=== PATIENT | male | born 1985 | race Caucasian/White ===

== ENCOUNTER 2016-11-26 11:04 | Emergency (ER) | payer BC, OTHER ==
[~2016-11-26] VITALS: Wt 85.0 kg
[~2016-11-26 11:04] MED LIST: ROSU5TAB5 PO
[2016-11-26 13:01] LABS: URINE BLOOD (Dip) POC 1+ (NEGATIVE)
--- NOTE | 2016-11-26 13:59 | RADRPT ---
PROCEDURE: Scrotal ultrasound CLINICAL INDICATION: Bilateral scrotal pain TECHNIQUE: Scrotal ultrasound was performed in multiple obliquities. Schwartz scale and color imaging was performed. Images were reviewed on high resolution PACS monitors. COMPARISON: None available FINDINGS: The testes are normal in size and echogenicity. There is normal flow to the bilateral testes. No t esticular mass or cyst is identified. No hydroceles are seen. There is mild nonspecific heterog eneity of the right epididymis, likely within normal limits for this patient. The epididymides are otherwise within normal limits. There is no evidence for a varicocele. IMPRESSION: 1. Mild heterogeneity of the right epididymis which may be artifactual. Recommend follow-up as cli nically indicated. 2. Otherwise unremarkable scrotal ultrasound. RPTAT: KK .Vinod Salter MD, MD Date Time Electronically viewed and signed by .Vinod Salter MD, MD on 11/26/2016 13:59 .B/
[2016-11-26] MEDS ORDERED: DOXY100T20 PO (14:04)
[2016-11-26] MEDS ORDERED: IBUP-1542 PO (14:05)
--- NOTE | 2016-11-26 14:41 | ERD ---
ER Documentation Chief Complaint Date/Time DATE: 11/26/16 TIME: 14:21 Chief Complaint r testical pain for a few wks. no drainage. no dysuria noted. HPI Patient is a 31 year old male who presents to the ED with chronic pain in his posterior testicles. He states that the pain is located in his testicles and behind his testicles. He denies abdominal pain, nausea, vomiting, diarrhea or constipation. Last bowel movement was this morning. He denies fever or chills. He states that he is currently sexually active with one partner and does not use protection. He denies penile discharge. He denies urinary symptoms. He denies back pain. He denies chest pain, cough, shortness of breath or difficulty breathing. ROS All systems reviewed and are negative except as per history of present illness. Medications Home Meds Active Scripts Ibuprofen* (Motrin*) 600 Mg Tab, 600 MG PO Q6, #30 TAB Prov:ALICIA AVENDANO PA-C 11/26/16 Doxycycline Hyclate* (Doxycycline Hyclate*) 100 Mg Tablet.dr, 100 MG PO BID for 10 Days, TAB Prov:ALICIA AVENDANO PA-C 11/26/16 Reported Medications Rosuvastatin Calcium* (Crestor*) 5 Mg Tablet, 5 MG PO HS, TAB 06/18/14 Allergies Allergies: Coded Allergies: No Known Drug Allergies (Verified Allergy, Mild, 06/18/14) PMhx/Soc Medical and Surgical Hx: pt denies Medical Hx History of Surgery: Yes (Side of chest) Anesthesia Reaction: No Hx Neurological Disorder: No Hx Respiratory Disorders: No Hx Cardiac Disorders: No Hx Psychiatric Problems: No Hx Miscellaneous Medical Probl: No Hx Alcohol Use: No Hx Substance Use: No Hx Tobacco Use: No Smoking Status: Never smoker Physical Exam Vitals Vital Signs Date Time Temp Pulse Resp B/P Pulse Ox O2 Delivery O2 Flow Rate FiO2 11/26/16 11:06 98.1 78 20 130/79 98 Physical Exam GENERAL: Well-developed, well-nourished male. Appears in no acute distress. LUNG: Clear to auscultation bilaterally. No rhonchi, wheezing, rales or coarse breath sounds. HEART: Regular rate and rhythm. No murmurs, rubs or gallops. ABDOMEN: No scars, ecchymosis or rashes noted. Soft, nontender, and nondistended. Positive bowel sounds in all four quadrants. No rebound tenderness , no guarding. (-) McBurneys point tenderness. No CVA tenderness. BACK: No midline tenderness. : no erythema or swelling of testicles. no phimosis or paraphimosis. uncircumcised. Bilaterally descended testicles Extremities: Equal pulses bilaterally. No peripheral clubbing, cyanosis or edema. No unilateral leg swelling. NEUROLOGIC: Alert and oriented. Moving all four extremities. 5/5 strength in all extremities. Normal speech. Steady gait. SKIN: Normal color. Warm and dry. No rashes or lesions. Capillary refill < 2 seconds Results 24 hrs Laboratory Tests Test 11/26/16 13:04 Bedside Urine Blood 1+ Bedside Urine Glucose (UA) Negative Bedside Urine Ketones (LAB) Negative Bedside Urine Leukocyte Esterase (L Negative Bedside Urine Nitrite (LAB) Negative Bedside Urine Protein (LAB) Negative Bedside Urine pH (LAB) 5.5 Procedures/MDM ER COURSE: I kept the patient and/or family informed of laboratory and diagnostic imaging results throughout the emergency room course. IMAGING STUDIES: [place] [id number] Radiology Main Line: [phone] DIAGNOSTIC IMAGING REPORT Patient: GISEL FONG : 1985 Age: 31 Sex: M MR #: [id number] DOS: 11/26/16 1250 Ordering MD: ALICIA AVENDANO PA-C Location: [facility] Room/Bed: PROCEDURE: Scrotal ultrasound CLINICAL INDICATION: Bilateral scrotal pain TECHNIQUE: Scrotal ultrasound was performed in multiple obliquities. Schwartz scale and color imaging was performed. Images were reviewed on high resolution PACS monitors. COMPARISON: None available FINDINGS: The testes are normal in size and echogenicity. There is normal flow to the bilateral testes. No testicular mass or cyst is identified. No hydroceles are seen. There is mild nonspecific heterogeneity of the right epididymis, likely within normal limits for this patient. The epididymides are otherwise within normal limits. There is no evidence for a varicocele. IMPRESSION: 1. Mild heterogeneity of the right epididymis which may be artifactual. Recommend follow-up as clinically indicated. 2. Otherwise unremarkable scrotal ultrasound. RPTAT: KK .Vinod Salter MD, Date Time Electronically viewed and signed by .Vinod Salter MD, MD on 2016 13:59 .B/ CC: ALICIA AVENDANO PA-C MEDICAL DECISION MAKING: This is a 31-year-old male who presents with 3 months of scrotal pain. Vital signs were reviewed. Patient is afebrile. Patient is not hypoxic. Patient is not toxic or ill-appearing. I consulted with Dr. Coto. 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 low suspicion for pyelonephritis, UTI, nephrolithiasis, appendicitis, testicular torsion, incarcerated or strangulated hernia. Patient did not have abdominal pain on examination. His urine dip was negative for nitrites or leukocyte esterase. I will be sending his urine out for culture of chlamydia and gonorrhea. DISCHARGE: At this time, patient is stable for discharge and outpatient management with no new complaints during the ER course. Patient was sent home with doxycycline, Motrin and to follow-up with urologist. Names of urologists were given to patient.. Patient will be discharged home with instructions to recheck for new or worsening symptoms such as fever, nausea, weakness, LOC and to follow up with primary care in the next 1-2 days. Patient was advised to return to the ER for any new or worsening symptoms. Plan was discussed and patient and/or family understands and agrees. Home instructions were given. Departure Diagnosis: Primary Impression: Testicular pain Condition: Stable Patient Instructions: Contusion, Testicles Or Scrotum Referrals: ANMOL RAJPUT MD,WAGN MCKINNEY MD, RICHARD MD Additional Instructions: Follow up with urology. Call your primary care doctor TOMORROW for an appointment during the next 1-2 days.See the doctor sooner or return here if your condition worsens before your appointment time. ALICIA AVENDANO PA-C Nov 26, 2016 14:39
== END 2016-11-26 14:35 | disposition home or self-care (01) ==
LOC: FTE 11:04
DX: N50.811 Right testicular pain (principal); N50.812 Left testicular pain
CPT/HCPCS: 76870; 81003; 87591